=== PATIENT | female | born 1995 | race Two or more races ===

== ENCOUNTER 2018-02-27 15:08 | Emergency (ER) | payer SELFPAY ==
[~2018-02-27] VITALS: Ht 165.1 cm; Wt 64.4 kg
[~2018-02-27 15:08] MED LIST: ALBUTEROL SULF8.5 GM INH; ATIVAN0.5 MG ORAL; HYDROCODON-ACE1 EA15 ORAL; IBUPROFEN600 MG ORAL; KENALOG 0.1% CR15 GM APPLIC; MEDROL DOSEPAK4 MG ORAL; NITROFURANTOIN100 M2 ORAL; NKM; ZOFRAN ODT4 MG ORAL
[2018-02-27] MEDS ORDERED: ALBUTEROL2.5 MG/3 M INH (15:17)
[2018-02-27 15:23] VITALS: BP 111/54
[2018-02-27 15:30] VITALS: BP_SYST 111; BP_DIAS 71; BP_DIAS 73
--- NOTE | 2018-02-27 15:50 | Emergency Room Report ---
History of Present Illness General Chief Complaint: Syncope Source: Patient Present Illness HPI The patient presents with 2 weeks of not feeling well. Yesterday she had some dizziness when she was trying to sit up and had to stay laying down. She presents today after having a syncopal episode at work. She had some epigastric pain and then was standing when her vision went dark and she was caught by coworkers. There was no chest pain during this episode or palpitations. She's been having epigastric pain that she been treating with yoli-siz-[id number] remedies including Mylanta and herbal teas. She also has some right flank pain. On Wednesday she had some chest pain and felt she had difficulty breathing at that time. She states she tried to catch her breath but felt air was not getting into her lungs. She has been seen for anxiety in the past with these symptoms. No melena, hematochezia. No vomiting. She has h/o asthma, but has not heard herself wheezing during the episodes of dyspnea. No calf pain or edema. No fevers. She has an implant for control. She's never been . She denies dysuria or discharge at this time. During this period of time her heart rate has dropped to 59 (according to her watch). Allergies: Coded Allergies: NO KNOWN DRUG ALLERGIES (Unverified Allergy, Unknown, 09/04/14) Patient History Past Medical History: see triage record Social History: Denies: smoking, alcohol use, drug use Social History Narrative works at [employer] - she commutes from [place] and works near [facility]. With boyfriend who is pre-med Last Menstrual Period: Unk - Left upper arm implant December 2017. Reviewed Nursing Documentation: PMH: Agreed; PSxH: Agreed Nursing Documentation-PMH Hx Asthma: Yes Review of Systems All Other Systems: negative except mentioned in HPI Physical Exam Vital Signs Date Time Temp Pulse Resp B/P (MAP) Pulse Ox O2 Delivery O2 Flow Rate FiO2 02/27/18 15:13 97.7 84 23 121/76 98 Room Air 97.7 Not orthostatic Sp02 EP Interpretation: reviewed, normal General Appearance: well appearing, no apparent distress, GCS 15 Head: normocephalic, atraumatic Eyes: bilateral eye normal inspection, bilateral eye PERRL ENT: moist mucus membranes Neck: supple Respiratory: lungs clear, normal breath sounds Cardiovascular #1: regular rate, rhythm Cardiovascular #2: 2+ radial (R) Gastrointestinal: normal inspection, normal bowel sounds, non tender, no mass, non-distended Musculoskeletal: back normal, gait/station normal, normal range of motion Neurologic: alert, oriented x3, motor strength/tone normal, DTRs symmetric, sensory intact, normal gait, speech normal Psychiatric: mood/affect normal Skin: normal inspection, warm/dry Medical Decision Making Diagnostic Impression: Primary Impression: Vasovagal syncope Additional Impressions: Gastritis Qualified Codes: K29.00 - Acute gastritis without bleeding UTI (urinary tract infection) Qualified Codes: N30.00 - Acute cystitis without hematuria H/O hyperventilation ER Course The patient presents post syncopal episode without prodrome having epigastric pain for 2 weeks. Differential includes vasovagal episode, volume depletion, arrhythmia, , occult infection amongst others. Evaluation will be with EKG, chest x-ray and labs. The patient will be treated with IV hydration, Pepcid, Zofran and Tylenol. EKG no injury. CXR normal. Labs with normal WBC and H/H. CMP normal except potassium slightly low. UA with pyuria. Rocephin given. Patient improved with treatment. Discussion of assessment and treatment plan. Patient stable for outpatient observation and treatment. Laboratory Tests Test 02/27/18 15:45 White Blood Count 8.9 K/UL (4.8-10.8) Red Blood Count 4.59 M/UL (4.20-5.40) Hemoglobin 14.6 G/DL (12.0-16.0) Hematocrit 41.6 % (37.0-47.0) Mean Corpuscular Volume 90 FL (80-99) Mean Corpuscular Hemoglobin 31.8 PG (27.0-31.0) H Mean Corpuscular Hemoglobin Concent 35.1 G/DL (32.0-36.0) Red Cell Distribution Width 11.0 % (11.6-14.8) L Platelet Count 295 K/UL (150-450) Mean Platelet Volume 5.9 FL (6.5-10.1) L Neutrophils (%) (Auto) 69.4 % (45.0-75.0) Lymphocytes (%) (Auto) 22.5 % (20.0-45.0) Monocytes (%) (Auto) 6.5 % (1.0-10.0) Eosinophils (%) (Auto) 0.9 % (0.0-3.0) Basophils (%) (Auto) 0.7 % (0.0-2.0) Prothrombin Time 10.2 SEC (9.30-11.50) Prothrombin Time INR 1.0 (0.9-1.1) PTT 27 SEC (23-33) Urine Color Pale yellow Urine Appearance Cloudy Urine pH 7.0 (4.5-8.0) Urine Specific [place] 1.010 (1.005-1.035) Urine Protein Negative (NEGATIVE) Urine Glucose (UA) Negative (NEGATIVE) Urine Ketones Negative (NEGATIVE) Urine Occult Blood Negative (NEGATIVE) Urine Nitrite Negative (NEGATIVE) Urine Bilirubin Negative (NEGATIVE) Urine Urobilinogen Normal MG/DL (0.0-1.0) Urine Leukocyte Esterase 1+ (NEGATIVE) H Urine RBC 2-4 /HPF (0 - 2) H Urine WBC 10-15 /HPF (0 - 2) H Urine Squamous Epithelial Cells Moderate /LPF (NONE/OCC) H Urine Bacteria Many /HPF (NONE) H Urine HCG, Qualitative Negative (NEGATIVE) Sodium Level 142 MMOL/L (136-145) Potassium Level 3.1 MMOL/L (3.5-5.1) L Chloride Level 105 MMOL/L (98-107) Carbon Dioxide Level 25 MMOL/L (21-32) Anion Gap 12 mmol/L (5-15) Blood Urea Nitrogen 9 mg/dL (7-18) Creatinine 0.6 MG/DL (0.55-1.30) Estimate Glomerular Filtration Rate > 60 mL/min (>60) Glucose Level 97 MG/DL (74-106) Calcium Level 9.4 MG/DL (8.5-10.1) Total Bilirubin 0.4 MG/DL (0.2-1.0) Aspartate Amino Transferase (AST) 15 U/L (15-37) Alanine Aminotransferase (ALT) 21 U/L (12-78) Alkaline Phosphatase 83 U/L (46-116) Total Creatine Kinase 79 U/L (26-308) Troponin I 0.000 ng/mL (0.000-0.056) Pro-B-Type Natriuretic Peptide 14 pg/mL (0-125) Total Protein 7.9 G/DL (6.4-8.2) Albumin 4.0 G/DL (3.4-5.0) Globulin 3.9 g/dL Albumin/Globulin Ratio 1.0 (1.0-2.7) EKG Diagnostic Results Rate: normal Rhythm: NSR ST Segments: no acute changes Rhythm Strip Diag. Results EP Interpretation: yes Rhythm: NSR, no PVC's, no ectopy Chest X-Ray Diagnostic Results Chest X-Ray Diagnostic Results : Chest X-Ray Ordered: Yes # of Views/Limited/Complete: 1 View Indication: Other Interpretation: no consolidation, no effusion, no pneumothorax Impression: No acute disease Electronically Signed by: Electronically signed by Leroy Morgan MD Last Vital Signs Date Time Temp Pulse Resp B/P (MAP) Pulse Ox O2 Delivery O2 Flow Rate FiO2 02/27/18 19:30 97.7 66 22 104/54 100 Room Air 97.7 Status: improved Disposition: HOME, SELF-CARE Condition: Improved Scripts Nitrofurantoin Monohyd/M-Cryst* (MACROBID 100 MG*) 100 Mg Capsule 100 MG ORAL EVERY 12 HOURS, #14 CAP Prov: Leroy Morgan M.D. 02/27/18 Albuterol Sulfate* (ALBUTEROL SULFATE MDI*) 8.5 Gm Hfa.aer.ad 2 PUFF INH Q6H, #1 EA 0 Refills Prov: Leroy Morgan M.D. 02/27/18 Famotidine (PEPCID) 20 Mg Tablet 20 MG ORAL DAILY, #30 TAB 0 Refills Prov: Leroy Morgan M.D. 02/27/18 Leroy Morgan M.D. Feb 27, 2018 15:50
[2018-02-27 16:19] LABS: APPEARANCE,URINE CLOUDY; COLOR,URINE PALE YELLOW; KETONES,URINE NEGATIVE (NEGATIVE); LEUKOCYTE ESTERASE ,URINE 1+ (NEGATIVE); PROTEIN,URINE NEGATIVE (NEGATIVE)
[2018-02-27 16:20] LABS: BILIRUBIN, URINE NEGATIVE (NEGATIVE); GLUCOSE, URINE (UA) NEGATIVE (NEGATIVE); NITRITE,URINE NEGATIVE (NEGATIVE); UROBILINOGEN,URINE NORMAL MG/DL (0.0-1.0)
[2018-02-27 16:24] LABS: BASOPHILS % (AUTO) 0.7 % (0.0-2.0); EOSINOPHILS % (AUTO) 0.9 % (0.0-3.0); HEMATOCRIT 41.6 % (37.0-47.0); HEMOGLOBIN 14.6 G/DL (12.0-16.0); LYMPHOCYTES % (AUTO) 22.5 % (20.0-45.0); MEAN CORPUSCULAR VOLUME 90 FL (80-99); MONOCYTES % (AUTO) 6.5 % (1.0-10.0); NEUTROPHILS % (AUTO) 69.4 % (45.0-75.0); PLATELET COUNT 295 K/UL (150-450); RED BLOOD COUNT 4.59 M/UL (4.20-5.40); WHITE BLOOD COUNT 8.9 K/UL (4.8-10.8)
[2018-02-27 16:37] LABS: ANION GAP 12 mmol/L (5-15); BLOOD UREA NITROGEN 9 mg/dL (7-18); CALCIUM 9.4 MG/DL (8.5-10.1); CARBON DIOXIDE 25 MMOL/L (21-32); CHLORIDE 105 MMOL/L (98-107); CREATININE 0.6 MG/DL (0.55-1.30); POTASSIUM 3.1 MMOL/L (3.5-5.1); SODIUM 142 MMOL/L (136-145)
[2018-02-27 16:50] LABS: ALANINE AMINOTRANSFERASE 21 U/L (12-78); ALKALINE PHOSPHATASE 83 U/L (46-116); ASPARTATE AMINO TRANSFERASE 15 U/L (15-37); BILIRUBIN,TOTAL 0.4 MG/DL (0.2-1.0); CREATINE KINASE 79 U/L (26-308)
[2018-02-27] MEDS ORDERED: cefTRIAXone 1 GM in NS 55 ML IVPB ONE (17:15)
[2018-02-27 17:48] VITALS: BP_SYST 104; BP_SYST 90; BP_DIAS 55; BP_DIAS 56
[2018-02-27 18:36] VITALS: BP 104/54
[2018-02-27] MEDS ORDERED: NITROFURANTOIN100 M2 ORAL (19:26)
[2018-02-27] MEDS ORDERED: ALBUTEROL SULF8.5 GM INH (19:26)
[2018-02-27] MEDS ORDERED: PEPCID20 MG ORAL (19:26)
[2018-02-27 19:30] VITALS: BP 104/54
--- NOTE | 2018-02-28 14:53 | Diagnostic Imaging Report ---
Indication: Syncope Technique: XRAY Chest 1v Comparison: None Findings: Heart size and mediastinal contours are within normal limits given technique. There is no focal consolidation, pneumothorax or pleural effusion. Mild scoliosis. Osseous structures demonstrate no acute abnormality. Lower abdominal shield in place. Impression: No radiographic evidence of acute cardiopulmonary disease.
--- NOTE | 2018-03-10 18:21 | Cardiology Report ---
APPROVED REPORT EKG Measurement Heart [id number] Normal sinus rhythm Non specific T-wave abnormality Borderline ECG
== END 2018-02-27 19:35 | disposition home or self-care (01) ==
LOC: EMR 16:00
DX: R55 Syncope and collapse (principal); K29.70 Gastritis, unspecified, without bleeding; N39.0 Urinary tract infection, site not specified
CPT/HCPCS: 36415; 71045; 80053; 81003; 81025; 82550; 83880; 84484; 85025; 85610; 85730; 87086; 87181; 93005; 96374; 96375; 99284; J0696; J2405; S0028; 96372